=== PATIENT | female | born 1965 | race Caucasian/White ===

== ENCOUNTER → 2020-04-16 | Outpatient (CLI) | payer OTHER ==
[~2020-04-16] MED LIST: IOHEXOL 300 MG/ML 75 ML VIAL. IV ONE
[2020-04-16 09:54] LABS: CREATININE 0.7 mg/dL (0.6-1.0); GFR 86.6
--- NOTE | 2020-04-16 16:45 | RAD ---
EXAM: CT Neck with IV contrast INDICATION: Reason: TONGUE MASS. Patient is a 54-year-old woman who quit smoking 16 years ago. She hutchins s dyspnea and dysphagia and a tongue mass. TECHNIQUE: Multiple contiguous axial images were obtained of the neck with the use of IV contrast. Po st-processing reconstructed images were obtained for interpretation. All CT scans performed at [facility] utilize dose optimization techniques as appropriate to the exam, including the following: Aut omated exposure control and adjustment of the mA and/or KV according to patient size (this includes t echniques or standardized protocols for targeted exams where dose is indication/reason for exam). IV CONTRAST: Administered COMPARISON: None FINDINGS: INTRACRANIAL STRUCTURES & ORBITS: Unremarkable. AERODIGESTIVE: The nasal cavity, nasopharynx, and oral cavity are unremarkable. The oropharynx is notable for left greater than right prominence of the faucial tonsils that on sagit leonor imaging appears to reflect a partially exophytic left faucial tonsillar mass. In addition, the base of tongue shows undulant soft tissue that could reflect the patient's lingular tonsil. No differentially enhancing mass is apparent. The larynx, trachea and esophagus are unremarkable in the visualized portions. CERVICAL LYMPH NODES & SOFT TISSUES: There is right greater than left bilateral cervical adenopathy most conspicuous at level 2 where lymph nodes measure up to 10 mm in short axis in the right level 2 fer station and 9 mm in short axis on the left. Mildly enlarged lymph nodes extend from level 1 thr ough level 3. THYROID & SALIVARY GLANDS: Unremarkable. LUNG APICES: Clear. OSSEOUS: No acute or aggressive osseous lesions. IMPRESSION: 1. The oropharynx is notable for left greater than right prominence of the faucial tonsils that on s agittal imaging appears to reflect a partially exophytic left tonsillar mass. In addition, the base o f tongue shows undulant soft tissue that could reflect the patient's lingular tonsil. No differential ly enhancing mass is apparent. Recommend correlation with endoscopic evaluation and consider PET/CT i maging in further evaluation as clinically warranted. 2. There is bilateral cervical adenopathy most conspicuous at level 2 where lymph nodes measure up t o 10 mm in short axis. No suppurative adenopathy or extracapsular soft tissue extension. Electronically signed by: Eddie Mistry MD (04/16/2020 4:43 PM) [id number]
== END ==
LOC: CT 08:49
PROVIDERS: ATTEND Otolaryngology
DX: J35.9 Chronic disease of tonsils and adenoids, unspecified (principal)
CPT/HCPCS: 36415; 70491; 82565; Q9967